=== PATIENT | female | born 1995 ===

== ENCOUNTER 2023-08-29 15:03 | Outpatient (CLI) | payer MEDICAID, SELFPAY | END 2023-08-29 15:04 | disposition home or self-care (01) | PROVIDERS: Visit Provider Registered Nurse | DX: Z34.93 Encounter for supervision of normal pregnancy, unspecified, third trimester (principal) | CPT/HCPCS: 86703; 87086 ==

== ENCOUNTER 2023-09-25 08:18 | Outpatient (CLI) | payer MEDICAID, SELFPAY ==
--- NOTE | 2023-09-25 09:45 | US_ITS ---
Patient: DIANE SANDS Facility:?[facility] RIS Patient ID:?[id number] Site Patient ID:?[id number]. Site :?[id number] Study:?US-OB Pelvis OB F/U GROWTH-09/25/2023 9:55:53 AM Ordering Physician:?MESHA RICHARDS Final Report: INDICATION: Hx of uterine scar from previous surgery COMPARISON: none TECHNIQUE: Real time hare scale imaging of the fetus was performed. FINDINGS: Sonographic imaging demonstrates a single living intrauterine gestation. Fetus demonstrates a regular cardiac rate of 137 beats per minute. Fetus has a vertex position. The placenta lies right anterior. Amniotic fluid volume appears normal and there is a single deepest vertical pocket: 7.6 cm. The estimated weight is 3186gm which lies at the 72nd %. BPD 94th percentile. HC 87th percentile. AC 66th percentile. FL 57th percentile. The HC/AC ratio measures 1.04 range (0.90-1.06). IMPRESSION: Sonographic gestational age 38 weeks 0 days and sonographic due date of 10/09/2023. Sonographic age 9 days ahead of the clinical age. Estimated weight 72nd. Abdominal circumference 66th percentile. Dictated by Esa Cardoso MD @ 09/25/2023 10:03:22 AM Signed by:?Esa Cardoso MD @09/25/2023 10:03:22 AM (Electronic Signature)
== END 2023-09-25 08:19 | disposition home or self-care (01) ==
PROVIDERS: Visit Provider Advanced Practice Midwife
DX: Q96.3 Mosaicism, 45, X/46, XX or XY (principal); Z34.90 Encounter for supervision of normal pregnancy, unspecified, unspecified trimester; R00.2 Palpitations; Z98.891 History of uterine scar from previous surgery
CPT/HCPCS: 76816; 93225; 93226; 93306; T1013

== ENCOUNTER 2023-09-25 11:15 | Outpatient (CLI) | payer MEDICAID, SELFPAY ==
[2023-09-26 13:48] LABS: Strep B DNA Probe POSITIVE (Negative)
[2023-09-26 15:28] LABS: Strep B Susceptibility Needed? No
== END 2023-09-25 11:16 | disposition home or self-care (01) ==
LOC: NFLDREF 11:40
PROVIDERS: Visit Provider Advanced Practice Midwife
DX: Z34.93 Encounter for supervision of normal pregnancy, unspecified, third trimester (principal); Q96.3 Mosaicism, 45, X/46, XX or XY; Z3A.38 38 weeks gestation of pregnancy
CPT/HCPCS: 76816; 87081; 87653; 93225; 93226; 93306

== ENCOUNTER 2023-10-09 14:10 | Outpatient (CLI) | payer MEDICAID, SELFPAY | END 2023-10-09 14:11 | disposition home or self-care (01) | LOC: NFLDREF 14:11 | PROVIDERS: Visit Provider Registered Nurse | DX: R68.83 Chills (without fever) (principal); N89.8 Other specified noninflammatory disorders of vagina | CPT/HCPCS: 84443 ==

== ENCOUNTER 2023-10-15 07:00 | Inpatient (IN) | payer MEDICAID, SELFPAY ==
[2023-10-15] VITALS (12 sets, daily range): BP systolic 106–194; BP diastolic 55–107; PULSE 78–100; RESP 16–18; TEMP 36.3–37.1; O2SAT 96; BMI 30.6
[2023-10-15] MEDS: KETOROLAC 30 MG/ML inj IVP (07:23)
--- NOTE | 2023-10-15 07:52 | P.LDBA_ITS ---
Subjective History of Present Illness Date Seen: 10/15/23 Narrative: Patient is being admitted to Labor and Delivery for precipitous delivery in the car on the way to the hospital. She is a 28 year old at 39.4 weeks gestation. Her full history and physical was completed 10/08 by Angella PEDRAZA.. Please see this for details. Specific Issues/Plans G 5 P 4 1. Mosaic Devlin syndrome * Cardiology consultation 08/19/2023 at [facility].? Four previous pregnancies with no significant cardiac issues.? No history of hypertension. ?They note that she has had CT angiograms in the past that demonstrated normal caliber vasculature in the chest.? Never had evidence of dissection.? Her palpitations reported.? Recommendations:? Consider calcium channel arnav beta-arnav depending on blood pressure going f orward.? Continue to monitor closely through delivery.? Obtain full echo cardio graphic study now.? Place the [employer] XT monitor to rule out any worrisome rhythm issues.? * Continue to monitor for diabetes and hypertension as you are. * Recommend maternal transthoracic echocardiogram. Patient awaiting call to schedule. Ordered here at [facility]. Completed 09/24/2022, WNL. See cardiology reports. * Recommended holter monitor. Patient awaiting call to schedule. They did not call patient. Ordered Holter monitor for 24 monitoring here at [facility]. 09/24 echo negative. Holter completed, WNL with occasional tachycardia. * When no longer : Recommend cardiac MRI, annual PCP evaluation for blood pressure check in routine screening TSH, free T4, lipids, LFTs, hemoglobin A1c, celiac screen with anti tissue transglutaminase antibody, eye exam 2. History of delivery with successful . Desires . C/S for arrest of dilation w/ 3rd baby Chance of successful : 85.1% TOLAC consent with OB: reviewed and signed on 10/02/2023 w/ NDP 36 week growth US recommended: 72% Records received 2 vag, 1 C/S then 1 noted in records from [facility] 3. Language barrier: French-speaking, requires photographic engineer 4. Headaches: Rec. Tylenol, hydration, caffeine, magnesium 5. Round ligament pain: Maternity support belt provided. Open to PT if pelvic discomfort persists. 6. Nausea and heartburn: Zofran and Omeprazole 7. GBS +, recommend antibiotics in labor 8. H+P completed 10/08 by Angella Flu: 08-29-23 Covid: Declines. Recommended. Tdap: 08-29-23 RSV: Declines Labs: 03/25/2023: Blood type O positive Antibody screen negative Hemoglobin 13.1 Platelets 261 Rubella positive TP PA negative Hepatitis-B antigen negative HIV[] Chlamydia negative Gonorrhea[] Urine culture negative Pap smear NILM, negative HPV Hepatitis C negative 08/05/2023 1 hour glucose: 154* 08/07/2023 3 hour glucose: 76, 172, 110, 122 (passed) hemoglobin: 12.2 Platelets: 225 Imaging:? 04/12/2023:? 13 weeks 0 days by [facility], HOLDEN by ultrasound is 10/17/2022 05/14/2023:? anatomy scan at 17 weeks 4 days.? Normal anatomy scan.? EFW 57%.? Anterior placenta with no previa.? heart rate 156 beats per minute.? Could not visualize left and right ventricle outflow for tracks due to position.? 06/12/2023: Follow-up limited ultrasound, anatomy scan complete and normal OB - Problem Based A/P Additional Plan (1) Encounter for care after unplanned out of hospital delivery: Status: Acute Plan Assessment:?? at 39.4 weeks gestation?? GBS positive? Precipitous delivery in car on the way to the hospital, successful complicated by: 1. Mosaic Devlin syndrome * Cardiology consultation 08/19/2023 at [facility].? Four previous pregnancies with no significant cardiac issues.? No history of hypertension. ?They note that she has had CT angiograms in the past that demonstrated normal caliber vasculature in the chest.? Never had evidence of dissection.? Her palpitations reported.? Recommendations:? Consider calcium channel arnav beta-arnav depending on blood pressure going forward.? Continue to monitor closely through delivery.? Obtain full echo cardio graphic study now.? Place the [employer] XT monitor to rule out any worrisome rhythm issues.? * Continue to monitor for diabetes and hypertension as you are. * Recommend maternal transthoracic echocardiogram. Patient awaiting call to schedule. Ordered here at [facility]. Completed 09/24/2022, WNL. See cardiology reports. * Recommended holter monitor. Patient awaiting call to schedule. They did not call patient. Ordered Holter monitor for [address] [facility]. 09/24 echo negative. Holter completed, WNL with occasional tachycardia. * When no longer : Recommend cardiac MRI, annual PCP evaluation for blood pressure check in routine screening TSH, free T4, lipids, LFTs, hemoglobin A1c, celiac screen with anti tissue transglutaminase antibody, eye exam 2. History of delivery with successful . Desires . C/S for arrest of dilation w/ 3rd baby Chance of successful : 85.1% TOLAC consent with OB: reviewed and signed on 10/02/2023 w/ NDP 36 week growth US recommended: 72% Records received 2 vag, 1 C/S then 1 noted in records from [facility] 3. Language barrier: French-speaking, requires photographic engineer 4. Headaches: Rec. Tylenol, hydration, caffeine, magnesium 5. Round ligament pain: Maternity support belt provided. Open to PT if pelvic discomfort persists. 6. Nausea and heartburn: Zofran and Omeprazole 7. GBS +, recommend antibiotics in labor Plan:?? * ?Admit to L & D? * IV access: SL placed in ED on admission * Tx to floor Delivery/Labor/Induction Plan Plan: other OB Exam Physical Exam Vital signs: Pulse BP 85 126/74 10/15/23 07:40 10/15/23 07:40 Narrative: GENERAL APPEARANCE:? normal affect, alert, no distress MOOD:? appropriate CHEST:? clear to auscultation HEART:? regular rate and rhythm ABDOMEN:? soft, non-tender the uterine fundus is firm At Umbilicus, Midline and is appropriate for the stage of recovery. PERINEUM:? mild edema of the perineum, there is a Perineal Laceration, repaired. EXTREMITIES:? normal and no edema Detailed Labor and Delivery Exam Patient Gravid: Yes
--- NOTE | 2023-10-15 07:56 | ED_ITS ---
HPI - General Adult General Source: RN notes reviewed and manager reporting History of Present Illness HPI narrative: 28-year-old female presents through the ambulance [place] after she delivered her 5th child in the car on route to the hospital. She reports the baby was born at 6:21 a.m.. She arrives at about 640. I attend promptly upon arrival. Ob nurse is present, had just given IM Pitocin, concerned with bleeding and placenta not yet delivered. With the manager reporting present IA answer a few quick questions and see that the placenta is sitting at the perineum. With her permission, gently pushed on the fundus and start coaxing the placenta out. The amniotic sac was a little bit hung up in delayed but with patient's in gentle downward traction, this slowly comes. There was a total of about 200 mL of blood loss with delivery of placenta. Nursing team stating that there was a very soaked pad in the car and that there was some bleeding on the bedding that I see prior to delivery of the placenta. The fundus was very firm following my palpation after delivery of placenta. We quickly did get an IV and transfer her over to OB. Ob provider met us upon entry to the room and I hand over subsequent care. Very limited care on my part and prompt hand over to OB team. Related Data Home Medications Medication Instructions Recorded Confirmed omeprazole 20 mg capsule,delayed 20 mg PO BID 08/29/23 10/15/23 release Previous Rx's Medication Instructions Recorded magnesium oxide 400 mg PO QDAY #30 caps 08/29/23 doxylamine succinate 25 mg tablet 25 mg PO QHS PRN sleep #30 tabs 09/25/23 (Unisom (doxylamine)) vit no.95-ferrous 1 tab PO ONCE #90 tabs 09/25/23 fumarate 28 mg-folic acid 800 mcg tablet ( Formula) acetaminophen 500 mg tablet 1,000 mg (2 x 500 mg) PO Q6H PRN 10/16/23 #0 tabs docusate sodium 100 mg capsule 100 mg PO DAILY #90 caps 10/16/23 ibuprofen 600 mg tablet 600 mg PO Q6H PRN #60 tabs 10/16/23 Allergies Allergy/AdvReac Type Severity Reaction Status Date / Time No Known Drug Allergies Allergy Verified 10/09/23 13:22 PFSH PFS Medical History Migraines ?G43.909 - Migraine, unspecified, not intractable, without status migrainosus (ICD-10) Frequent UTI ?N39.0 - Urinary tract infection, site not specified (ICD-10) Anemia ?D64.9 - Anemia, unspecified (ICD-10) Hypertelorism ?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 - Hypertelorism (ICD-10) History of HPV infection ?Z86.19 - Personal history of other infectious and parasitic diseases (ICD- 10) Vaginal delivery ?O80 - Encounter for full-term uncomplicated delivery (ICD-10) Vaginal after ?O34.219 - Maternal care for unspecified type scar from previous delivery (ICD-10) Surgical History S/P section ?Z98.891 - History of uterine scar from previous surgery (ICD-10) Social History What is your current living situation?: I presently have a place to live Problems where you live: no known problems In the past 12 months, utilities in danger of being shut off: no In past 12 months, lack of transportation kept you from medical appts, meetings, work, or getting things needed for daily living: no In the past 12 mos, have been you worried that your food would run out before y ou had money to buy more?: never true In the past 12 mos, the food you bought just didn't last and you didn't have money to buy more?: never true Smoking Status: Never smoker How often does anyone, including family, friends and others, physically hurt you : never How often does anyone, including family, friends and others, insult or talk down to you: never How often does anyone, including family, friends and others, threaten you with harm: never How often does anyone, including family, friends and others, scream or curse at you: never Little interest or pleasure in doing things: not at all Feeling down, depressed, or hopeless: not at all Exam Const: Vital Signs, click to edit/add: Vital Signs - 24 hr 10/16/23 00:19 10/16/23 04:24 10/16/23 07:46 Temperature 98.0 F Pulse Rate [Pulse Oximeter] 84 64 84 Respiratory Rate 18 18 16 Blood Pressure [Le ft Arm] 117/70 116/61 122/76 Pulse Oximetry 96 Oxygen Delivery Me thod Room Air Room Air Room Air 10/16/23 14:32 Temperature 98.3 F Pulse Rate [Pulse Oximeter] 84 Respiratory Rate 16 Blood Pressure [Le ft Arm] 129/74 Pulse Oximetry Oxygen Delivery Me thod Room Air Course Vital Signs Vital signs: Initial Vital Signs Pulse Rate 88 10/15/23 07:25 Blood Pressure 120/70 10/15/23 07:25 Blood Pressure Mean 89 10/15/23 07:25 Vital Signs Pulse Rate 88 10/15/23 07:25 Blood Pressure 120/70 10/15/23 07:25 Temperature 98.3 F 10/16/23 14:32 Pulse Rate 84 10/16/23 14:32 Respiratory Rate 16 10/16/23 14:32 Blood Pressure 129/74 10/16/23 14:32 Pulse Oximetry 96 10/16/23 04:24 Oxygen Delivery Method Room Air 10/16/23 14:32 Medications Administered Medications: Discontinued Medications Generic Name Dose Route Start Last Admin Trade Name Freq PRN Reason Stop Dose Admin Acetaminophen 1,000 mg 10/15/23 07:47 10/15/23 08:31 Acetaminophen 500 Mg Tablet PO 1,000 mg Q6H PRN Administration pain/fever Acetaminophen 1,000 mg 10/15/23 08:51 10/16/23 00:17 Acetaminophen 500 Mg Tablet PO 1,000 mg Q6H PRN Administration Docusate Sodium 100 mg 10/15/23 09:00 10/16/23 07:56 Docusate Sodium 100 Mg Capsule PO 100 mg DAILY MICHELLE Administration Oxytocin 30 unit in 500 mls @ 300 mls/hr 10/15/23 08:00 10/15/23 09:48 Oxytocin 30 Unit/500 Ml In Ns IVPB Not Given CONT MICHELLE Lactated Ringer's 1,000 mls @ 125 mls/hr 10/15/23 07:50 10/15/23 09:48 Lactated Ringers 1000 Ml IV Not Given .Q8H MICHELLE Ibuprofen 600 mg 10/15/23 08:51 10/16/23 14:41 Ibuprofen 600 Mg Tablet PO 600 mg Q6H PRN Administration Ketorolac Tromethamine 30 mg 10/15/23 07:47 10/15/23 07:23 Ketorolac 30 Mg/Ml Inj IVP 10/15/23 07:48 30 mg ONCE ONE Administration Medical Decision Making Lab Data Labs: Lab Results 10/15/23 Range/Units 07:08 RPR Screen Non Reactive (Non Reactive) Discharge Plan Discharge Disposition: Home, Self-Care Date of Admission: 10/15/23 07:00 Attending Provider on Discharge: Ary Monterroso Primary Care Provider: Provider,Not a Local Condition: Stable Anticipated Discharge Date/Time: 10/16/23 18:00 Discharge Medications: New acetaminophen 500 mg Tablet 1,000 mg PO Q6H PRNQty: 0 0RF docusate sodium 100 mg Capsule 100 mg PO DAILY Qty: 90 0RF ibuprofen 600 mg Tablet 600 mg PO Q6H PRNQty: 60 0RF Continued omeprazole 20 mg capsule,delayed release(DR/EC) 20 mg PO BID magnesium oxide 400 mg magnesium capsule 400 mg PO QDAY Qty: 30 1RF PNV cmb#95-ferrous fumarate-FA [ Formula] 28 mg iron- 800 mcg tablet 1 tab PO ONCE Qty: 90 2RF Unisom (doxylamine) 25 mg tablet 25 mg PO QHS PRN (Reason: sleep) Qty: 30 1RF Discontinued ondansetron HCl 4 mg tablet 4 mg PO Q6H Discharge Orders: Discharge Order (Routine); Ordered 10/16/23 Ordered By: Ary Monterroso Patient Education: OB Over the Counter Medication Information, OB Vaginal/Breast Feeding Additional Instructions: Discharge instructions were reviewed with the patient including signs and symptoms of infection and home going medications Nothing vaginally for 6 weeks: no tampons or intercourse Do not drive while taking narcotic pain medication(s) Off Work or School for 6 weeks 2-week visit: discuss infant feeding concerns, review control options and screen for anxiety/depression. 6-week visit for an annual exam. consultation services are available to all mothers and babies for the first year after delivery.? To make an appointment, please call [phone]. Activity Level: Activity as Tolerated Discharge Diet: Regular Follow Up Appointments: [facility] [Provider Group] Forms: [employer] Info Instructions
--- NOTE | 2023-10-15 07:57 | W.PM.OBVAGDE ---
OB Procedure Vag Delivery Mother Details Mother Details: The patient is a 28 year-old, 5, Para 4, admitted on 10/15/23 at 39.4 wks gestation. Previous C/S with successful in the car on the way to the hospital. : 5 Para: 5 Weeks Gestation: 39.4 Admission Date: 10/15/23 Additional Details Amniotic Membrane Status: SROM Amniotic Membrane Rupture Date: 10/15/23 Amniotic Membrane Rupture Time: 06:21 Amniotic Membrane Fluid Description: Clear Analgesia/Anesthesia Type: None Pitcoin: No Labor Onset: 02:30 Heart: heart tones during second stage were not monitored as patient delivered in car prior to admission Delivery Details Delivery Date: 10/15/23 Delivery Time: 06:21 Route of delivery: Gender: Male Infant Viability: Alive; Heart Rate Present Delivery Details: Henrietta arrived by car having delivered spontaneously viable male infant on the drive to the hospital at 0621. Placenta was delivered on arrival to the ED by ED provider at 0658. Examined on arrival to floor and appears intact although membranes are shredded and unable to adequately see if all are there. Patient reports SROM at the time of delivery. Bleeding controlled with fundal massage and?pitocin?for AMTSL.? ? Mother and infant were stable after delivery.? ? Lacerations:? Examination of perineum showed small first degree tear, tissues did sit together nicely but with any movement by patient there was bleeding. Discussed with patient options of leaving to heal on own or repairing and she requested repair. 1st degree, repaired with 3-0 vicryl in usual fashion. ? Bleeding?post delivery?was: minimal. ?The fundus was firm to palpation.? Blood loss: 250?mL.? Blood loss measurement type: ? EBL? ? Sponge,?lap?and needles counts are correct.? Mother and were stable after delivery.? Additional Details Shoulder Dystocia: No Placenta Delivery Time: 06:58 Placental Delivery Description: Spontaneous Delivery repair: Vicryl Blood Loss: 250 (discussed with RN who visualized blood in car and bleeding in ED) Laceration: Perineal - 1st Degree Blood Loss Measurement Type: EBL Bakri Used: No Sponge/Need Count Correct: Yes Cord Vessel Description: 3 Vessels Event Summary Status: Mother and infant were stable after delivery. Disposition: floor
[2023-10-15] MEDS: ACETAMINOPHEN 500 MG TABLET 1000 MG PO ×2 (08:31→16:43)
[2023-10-15] MEDS: IBUPROFEN 600 MG TABLET PO (12:38)
[2023-10-15] MEDS: DOCUSATE SODIUM 100 MG CAPSULE PO (12:38)
[2023-10-16] MEDS: ACETAMINOPHEN 500 MG TABLET 1000 MG PO (00:17)
[2023-10-16 00:19] VITALS: BP 117/70; PULSE 84; RESP 18
[2023-10-16 04:24] VITALS: BP 116/61; PULSE 64; RESP 18; O2SAT 96
[2023-10-16 07:46] VITALS: BP 122/76; PULSE 84; RESP 16; TEMP 36.7
[2023-10-16] MEDS: IBUPROFEN 600 MG TABLET PO ×2 (07:55→14:41)
[2023-10-16] MEDS: DOCUSATE SODIUM 100 MG CAPSULE PO (07:56)
--- NOTE | 2023-10-16 09:51 | PM.OBDSVD1 ---
DS: Providers Provider Date Seen: 10/16/23 Date of admission: 10/15/23 07:00 Primary care physician: Not a Local Provider Admitting Clinician: Efrain Toussaint CNM Attending Physician on discharge: Ary Monterroso APRN, CNM DS: Diagnosis Discharge Diagnosis (1) care and examination immediately after delivery: Status: Acute (2) Lactating mother: Status: Acute Exam Narrative: Exam Narrative: GENERAL APPEARANCE:? normal affect, alert, no distress MOOD:? appropriate CHEST:? clear to auscultation HEART:? regular rate and rhythm ABDOMEN:? soft, non-tender the uterine fundus is at Umbilicus, Midline and is appropriate for the stage of recovery. PERINEUM:? mild edema of the perineum, there is a Perineal Laceration,?1st degree, that is healing well. Lochia is scant. EXTREMITIES:? normal and no edema Const: Vital Signs, click to edit/add: Vital Signs - 24 hr 10/15/23 11:16 10/15/23 15:26 10/15/23 21:30 Temperature 97.4 F L 98.6 F 98.8 F Pulse Rate [Pulse Oximeter] 97 83 78 Respiratory Rate 16 16 18 Blood Pressure [Le ft Arm] 106/64 108/68 114/64 Pulse Oximetry 96 96 96 Oxygen Delivery Me thod Room Air Room Air Room Air 10/16/23 00:19 10/16/23 04:24 10/16/23 07:46 Temperature 98.0 F Pulse Rate [Pulse Oximeter] 84 64 84 Respiratory Rate 18 18 16 Blood Pressure [Le ft Arm] 117/70 116/61 122/76 Pulse Oximetry 96 Oxygen Delivery Me thod Room Air Room Air Room Air Documenting provider has reviewed patient's vital signs: yes OB - DS: Summary Hospital Course Hospital Course: Henrietta is a 28 y.o. G 5 P 5 who was admitted to [facility] for care following a precipitous delivery that occurred in her car on the way to the hospital. ?She had a that was uncomplicated. The patient feels well. ?The pain is well controlled with current medications. ?She has no new complaints. ?She is breast feeding and reports things are going well. the patient has done well.? Vitals have been stable.? She has remained afebrile.? Has a good appetite, is tolerating a general diet. ?She is voiding without difficulty.? She is passing gas and has not had a bowel movement.? She is ambulating and denies any dizziness.? Has small amount of rubra lochia. She is planning Depo for prevention. Problems: none plan: Discharge home with baby. Follow up in 2 weeks and 6 weeks. , may see if needed Peripartum Data Infant delivery method: Laceration description: Perineal - 1st Degree complications: none Gender: Male Infant Discharge Plan: Home Status at Discharge Functional status at discharge: independent ambulation Overall status at discharge: patient is progressing back to baseline Time Spent with Patient Time attestation: Total time spent providing and/or coordinating discharge services: Time spent: Less than 30 minutes Discharge Plan Discharge Disposition: Home, Self-Care Date of Admission: 10/15/23 07:00 Attending Provider on Discharge: Ary Monterroso Primary Care Provider: Provider,Not a Local Condition: Stable Anticipated Discharge Date/Time: 10/16/23 18:00 Discharge Medications: New acetaminophen 500 mg Tablet 1,000 mg PO Q6H PRNQty: 0 0RF docusate sodium 100 mg Capsule 100 mg PO DAILY Qty: 90 0RF ibuprofen 600 mg Tablet 600 mg PO Q6H PRNQty: 60 0RF Continued omeprazole 20 mg capsule,delayed release(DR/EC) 20 mg PO BID magnesium oxide 400 mg magnesium capsule 400 mg PO QDAY Qty: 30 1RF PNV cmb#95-ferrous fumarate-FA [ Formula] 28 mg iron- 800 mcg tablet 1 tab PO ONCE Qty: 90 2RF Unisom (doxylamine) 25 mg tablet 25 mg PO QHS PRN (Reason: sleep) Qty: 30 1RF Discontinued ondansetron HCl 4 mg tablet 4 mg PO Q6H Discharge Orders: Discharge Order (Routine); Ordered 10/16/23 Ordered By: Ary Monterroso Patient Education: OB Over the Counter Medication Information, OB Vaginal/Breast Feeding Additional Instructions: Discharge instructions were reviewed with the patient including signs and symptoms of infection and home going medications Nothing vaginally for 6 weeks: no tampons or intercourse Do not drive while taking narcotic pain medication(s) Off Work or School for 6 weeks 2-week visit: discuss infant feeding concerns, review control options and screen for anxiety/depression. 6-week visit for an annual exam. consultation services are available to all mothers and babies for the first year after delivery.? To make an appointment, please call [phone]. Activity Level: Activity as Tolerated Discharge Diet: Regular Follow Up Appointments: [facility] [Provider Group] Forms: [employer] Info Instructions
[2023-10-16 14:32] VITALS: BP 129/74; PULSE 84; RESP 16; TEMP 36.8
[2023-10-16 17:55] LABS: Rapid Plasma Reagin (RPR) Non Reactive (Non Reactive)
== END 2023-10-16 18:22 | disposition home or self-care (01) | DRG 776 ==
LOC: OB 07:13 → OB OUT 07:51 → OB 07:51
PROVIDERS: Admitting Provider Advanced Practice Midwife; Visit Provider Advanced Practice Midwife
DX: Z39.0 Encounter for care and examination of mother immediately after delivery (principal); O70.0 First degree perineal laceration during delivery; O99.825 Streptococcus B carrier state complicating the puerperium
CPT/HCPCS: 36415; 86592; 88307; 99281; G0463; T1013; A9270; J1885